=== PATIENT | female | born 1950 | race Caucasian/White ===

== ENCOUNTER 2017-12-09 08:45 | Emergency (ER) | payer OTHER ==
[~2017-12-09] VITALS: Ht 165.1 cm; Wt 90.7 kg
[2017-12-09 10:11] LABS: Basophils # (auto) 0 uL; Eosinophils # (auto) 0.1 uL; Monocytes # (auto) 0.7 uL; Nucleated Red Blood Cells % 0.4 %
[2017-12-09 10:13] LABS: Alanine Aminotransferase 79 U/L (13-56); Albumin 3.9 g/dL (3.4-5.0); Alkaline Phosphatase 59 U/L (45-117); Anion Gap 9 (5-15); Aspartate Aminotransferase 50 U/L (15-37); Basophils % (auto) 0.8 % (0.0-2.0); Bilirubin, Total 0.5 mg/dL (0.2-1.0); Blood Urea Nitrogen 23 mg/dL (7-18); Calcium 8.5 mg/dL (8.5-10.1); Carbon Dioxide 23 mmol/L (21-32); Chloride 108 mmol/L (98-107); GFR African American 74 mL/min; GFR Non-African American 61 mL/min; Glucose 108 mg/dL (74-106); Hematocrit 54.6 % (36.0-46.0); Hemoglobin 18.4 g/dL (12.2-16.2); Lymphocytes % (auto) 16.5 % (10.0-50.0); Mean Corpuscular Hemoglobin 31.8 pg (28.0-32.0); Mean Corpuscular Hgb Conc. 33.7 g/dL (32.0-36.0); Mean Corpuscular Volume 94.5 fL (80.0-100.0); Monocytes % (auto) 12.6 % (0.0-12.0); Neutrophils % (auto) 68.1 % (37.0-80.0); Platelet Count (auto) 224 10^3/uL (140-450); Potassium 3.4 mmol/L (3.5-5.1); Red Blood Cells 5.78 10^6/uL (4.0-5.20); Red Cell Distribution Width 13.5 % (11.8-14.3); Sodium 140 mmol/L (136-145); Total Protein 7.8 g/dL (6.4-8.2); White Blood Cell 5.8 10^3/uL (4.4-10.8)
[2017-12-09 16:00] VITALS: BP 121/94
== END 2017-12-09 16:15 | disposition home or self-care (01) ==
LOC: ER 09:08
DX: R53.1 Weakness (principal); Z88.8 Allergy status to other drugs, medicaments and biological substances; Z85.42 Personal history of malignant neoplasm of other parts of uterus; Z90.710 Acquired absence of both cervix and uterus; Z90.49 Acquired absence of other specified parts of digestive tract
CPT/HCPCS: 36415; 70450; 71046; 80053; 83690; 84484; 85025; 93005

== ENCOUNTER 2021-07-27 18:11 | Emergency (ER) | payer OTHER ==
[~2021-07-27] VITALS: Ht 167.6 cm; Wt 97.5 kg
[2021-07-27] MEDS ORDERED: amLODIPine BESYLATE 5 MG TAB ONE (18:39)
[2021-07-27] MEDS ORDERED: amLODIPine BESYLATE 5 MG TAB PO ONE (18:45)
[2021-07-27 22:23] VITALS: BP 163/76
== END 2021-07-27 22:50 | disposition home or self-care (01) ==
LOC: ER 18:13
DX: S61.210A Laceration without foreign body of right index finger without damage to nail, initial encounter (principal); I10 Essential (primary) hypertension; Z90.710 Acquired absence of both cervix and uterus; W22.8XXA Striking against or struck by other objects, initial encounter; Y93.89 Activity, other specified; Y92.090 Kitchen in other non-institutional residence as the place of occurrence of the external cause; Y99.8 Other external cause status
CPT/HCPCS: 12001

== ENCOUNTER 2024-05-19 06:49 | Inpatient (IN) | payer OTHER ==
[~2024-05-19] VITALS: Ht 167.6 cm; Wt 111.3 kg
--- NOTE | 2024-05-19 07:11 | ED.PDOC ---
Jacquie. trauma (HPI) HPI Comments 74 year old female presents to the ED with chief complaint of back pain s/p fall. Patient reports that she had accidentally tripped and fell backwards today, hitting her mid lower back against the toilet seat in her bathroom. Patient relays that since then, she has had a lot of pain to her back along with swelling and bruising to where she got hit by the toilet seat. Patient denies any LOC, head injury, neck injury, numbness, or weakness. Chief Complaint: Fall Injury Time Seen by MD: 07:09 Primary Care Provider: JAIMEE Reviewed notes: Nurses Notes, Medications, Allergies Allergies: Coded Allergies: Naproxen (Unverified Allergy, Unknown, 12/09/17) Information Source: Patient Mode of Arrival: Ambulatory Severity: Moderate Timing: Hours Duration: Since onset Prehospital treatment: None Location: Back Location of laceration: None Mechanism: Fall Past Medical History PAST MEDICAL HISTORY: Cancer, HTN Surgical History: Appendectomy, Hysterectomy, Tonsillectomy GEOSPATIAL ENGINEER History: Endometriosis Family History Family History: Reviewed,noncontributory to illness Social History Smoker: Non-Smoker Alcohol: Rarely Drugs: Denies Drug Use Lives In: Home Constitutional: denies: chills, diaphoresis, fatigue, fever, malaise, sweats, weakness, others EENTM: denies: blurred vision, double vision, ear bleeding, ear discharge, ear drainage, ear pain, ear ringing, eye pain, eye redness, hearing loss, mouth pain, mouth swelling, nasal discharge, nose bleeding, nose congestion, nose pain, photophobia, tearing, throat pain, throat swelling, voice changes, others Respiratory: denies: cough, hemoptysis, orthopnea, SOB at rest, shortness of breath, SOB with excertion, stridor, wheezing, others Cardiovascular: denies: chest pain, dizzy spells, diaphoresis, Dyspnea on exertion, edema, irregular heart beat, left arm pain, lightheadedness, palpitations, PND, syncope, others Gastrointestinal: denies: abdomen distended, abdominal pain, blood streaked bowels, constipated, diarrhea, dysphagia, difficulty swallowing, hematemesis, melena, nausea, poor appetite, poor fluid intake, rectal bleeding, rectal pain, vomiting, others Genitourinary: denies: abnormal vagina bleeding, burning, dyspareunia, dysuria, flank pain, frequency, hematuria, incontinence, pain, , vagina discharge, urgency, others Neurological: denies: dizziness, fainting, headache, left sided numbness, left sided weakness, numbness, paresthesia, pre-existing deficit, right sided n umbness, right sided weakness, seizure, speech problems, tingling, tremors, weakness, others Musculoskeletal: reports: back pain (Mid lower back); denies: gout, joint pain, joint swelling, muscle pain, muscle stiffness, neck pain, others Integumetry: reports: bruises (large hematoma to mid lower back); denies: change in color, change in hair/nails, dryness, laceration, lesions, lumps, rash, wounds, others Allergic/Immunocompromised: denies: Difficulty Healing, Frequent Infections, Hives, Itching, others Hematologic/Lymphatic: denies: anemia, blood clots, easy bleeding, easy bruising, swollen glands, others Endocrine: denies: excessive hunger, excessive sweating, excessive thirst, excessive urination, flushing, intolerance to cold, intolerance to heat, unexplained weight gain, unexplained weight loss, others Psychiatric: denies: anxiety, bipolar disorder, depression, hopeless, panic disorder, schizophrenia, sleepless, suicidal, others All Other Systems: Reviewed and Negative Physical Exam General Appearance: Moderate Distress, Obese HEENT: Normal ENT Inspection, PERRL/EOMI Neck: Full Range of Motion, Non-Tender, Normal, Normal Inspection Respiratory: Chest Non-Tender, Lungs Clear, No Accessory Muscle Use, No Respiratory Distress, Normal Breath Sounds Cardiovascular: No Edema, No JVD, No Murmur, No Gallop, Normal Peripheral Pu lses, Regular Rate/Rhythm Breast Exam: Deferred Gastrointestinal: No Organomegaly, Non Tender, No Pulsatile Mass, Normal Bowel Sounds, Soft Genitalia: Deferred Pelvic: Deferred Rectal: Deferred Extremities: No calf tenderness, Normal capillary refill, Normal inspection, Normal range of motion, Non-tender, No pedal edema Musculoskeletal : Location: Bilateral Extremity Location: Back, Other (Large almost involving the entire mid back with a large hematoma which is very painful very hard to touch) Apperance: Normal Neurologic: Alert, flat folder II-XII nml as Tested, No Motor Deficits, Normal Affect, Normal Mood, No Sensory Deficits Cerebellar Function: Normal Reflexes: NOT DONE Skin: Bruises, Dry, Normal Color, Warm Peripheral Pulses: 1+ carotid (R), 1+ carotid (L) Lymphatic: No Adenopathy Was a procedure done? Was a procedure done?: No Differential Diagnosis Multiple Trauma: Fractures, Spine Injury, Contusion, Hematoma Neck Injury: N/A X-Ray, Labs, Meds, VS Vital Signs Date Time Temp Pulse Resp B/P (MAP) Pulse Ox O2 Delivery O2 Flow Rate FiO2 05/19/24 10:03 73 20 95 Nasal Cannula* 2 28 05/19/24 10:00 73 19 94/58 (70) 99 05/19/24 09:30 76 19 98/65 (76) 95 05/19/24 09:15 98 19 77/56 (63) 91 05/19/24 09:00 98 19 84/58 (67) 91 05/19/24 08:54 82 17 83/58 05/19/24 08:29 123/73 05/19/24 08:24 81 19 123/73 05/19/24 08:00 81 19 123/73 (90) 93 05/19/24 07:30 98.3 92 20 191/116 (141) 93 98.3 05/19/24 07:29 186/102 05/19/24 06:55 97.8 101 16 226/127 (160) 98 Current Medications Medications (Trade) Dose Ordered Sig/Mari Route Start Time Stop Time Status Last Admin Clonidine HCl (Catapres Tablet) 0.2 mg ONCE ONCE PO 05/19/24 07:15 05/19/24 07:16 DC 05/19/24 07:29 Morphine Sulfate 3 mg ONCE ONCE IV 05/19/24 08:00 05/19/24 08:01 DC 05/19/24 08:24 Ondansetron HCl (Zofran) 4 mg ONCE ONCE IV 05/19/24 08:00 05/19/24 08:01 DC 05/19/24 08:23 Sodium Chloride 1,000 ml @ 1,000 mls/hr Q1H ONCE IV 05/19/24 09:00 05/19/24 10:10 DC 05/19/24 09:[address]: FINDINGS: Bones: No acute fracture or or subluxation. Disc spaces are maintained. Discogenic endplate changes are seen at several levels. Posterior facet arthropathy L3-S1 levels. Soft tissues: A large midline subcutaneous hematoma noted at the level of the spinous processes of L1 through L4 measuring 10 cm in craniocaudal, 12 cm in transverse and 7.5 cm in AP. IMPRESSION: 1. No acute osseous abnormality. 2. Large midline subcutaneous hematoma at the level of the spinous processes of L1 through L4. X-Ray, Labs, Meds, VS Comment 74 presented emergency department after a fall with a back injury in the large hematoma to was by 10 [address] of the back lumbar spine shows large hematoma but the spine besides some DJD does not show any injuries Patient in severe pain and we will need surgery to incised and drained hematoma Images Reviewed?: Images reviewed and evaluated by me Time of 1ST Reevaluation: 08:09 Reevaluation 1ST: Unchanged Patient Education/Counseling: Diagnosis, Treatment Family Education/Counseling: No Family Present Departure 1 Departure Time of Disposition: 10:35 Impression: Primary Impression: Fall at home Qualified Codes: W19.XXXA - Unspecified fall, initial encounter; Y92.009 - Unspecified place in unspecified non-institutional (private) residence as the place of occurrence of the external cause Additional Impressions: Subcutaneous hematoma Severe lumbar pain Disposition: 02 SHORT TERM HOSPITAL Condition: Fair Critical Care Note Critical Care Time?: No Stability Stability form required: Yes Heart Score Heart Score: Heart Score Response (Comments) Value History N/A 0 EKG N/A 0 Age >65 2 Risk Factors No known risk factors 0 Troponin N/A 0 Total 2 I personally scribed for ANAHY MORENO MD ([email or web address]) on 05/19/24 at 07:11. Electronically submitted by Heraclio Ribeiro ([email or web address]). I personally scribed for ANAHY MORENO MD ([email or web address]) on 05/19/24 at 08:16. Electronically submitted by Heraclio Ribeiro ([email or web address]). ANAHY MORENO MD May 19, 2024 07:11
[2024-05-19] MEDS: cloNIDine HCL 0.1 MG TAB PO ONE (07:29)
--- NOTE | 2024-05-19 08:13 | DVH ---
Procedure: CT LS SPINE WO CONTRAST 05/19/2024 07:31 AM Indication: Fall at home with large back hematoma Comparison Study: None. Technique: Axial images were obtained and reformatted in coronal and sagittal planes. All CT scans at this medical facility are performed using dose modulation techniques as appropriate t o a performed exam including the following: Automated exposure control was utilized; adjustment of th e MA and/or KV according to patient size; and use of iterative reconstruction technique. CT Dose: CTDI volume is 38.23 mGy. Dose-length product is 1108.31 mGy*cm FINDINGS: Bones: No acute fracture or or subluxation. Disc spaces are maintained. Discogenic endplate changes a re seen at several levels. Posterior facet arthropathy L3-S1 levels. Soft tissues: A large midline subcutaneous hematoma noted at the level of the spinous processes of L1 through L4 measuring 10 cm in craniocaudal, 12 cm in transverse and 7.5 cm in AP. IMPRESSION: 1. No acute osseous abnormality. 2. Large midline subcutaneous hematoma at the level of the spinous processes of L1 through L4.
[2024-05-19] MEDS: ONDANSETRON HCL 4 MG/2 ML VIAL IV ONE (08:23)
[2024-05-19] MEDS: MORPHINE SULFATE 4 MG/ML SYR/VIAL IV ONE (08:24)
[2024-05-19] MEDS: SODIUM CHLORIDE 0.9% 1,000 ML IV ONE ×2 (09:00→11:08)
[2024-05-19 10:03] VITALS: PULSE 73; RESP 20; O2SAT 95
[2024-05-19 11:20] LABS: Basophils # (auto) 0.1 10 ^3/uL (0-0.2); Basophils % (auto) 0.6 % (0.0-2.0); Eosinophils # (auto) 0 10 ^3/uL (0-0.8); Eosinophils % (auto) 0.3 % (0.0-7.0); Hematocrit 46.4 % (36.0-46.0); Hemoglobin 15.2 g/dL (12.2-16.2); Lymphocytes % (auto) 7.4 % (10.0-50.0); Mean Corpuscular Hemoglobin 32.2 pg (28.0-32.0); Mean Corpuscular Hgb Conc. 32.7 g/dL (32.0-36.0); Mean Corpuscular Volume 98.4 fL (80.0-100.0); Monocytes # (auto) 0.7 10 ^3/uL (0-1.3); Monocytes % (auto) 5.1 % (0.0-12.0); Neutrophils # (auto) 11.2 10 ^3/uL (1.6-8.6); Neutrophils % (auto) 86.6 % (37.0-80.0); Platelet Count (auto) 201 10^3/uL (140-450); Red Blood Cells 4.71 10^6/uL (4.0-5.20); Red Cell Distribution Width 13.6 % (11.8-14.3); White Blood Cell 12.9 10^3/uL (4.4-10.8)
[2024-05-19 11:34] LABS: Chloride 109 mmol/L (98-107); Potassium 4.8 mmol/L (3.5-5.1); Sodium 143 mmol/L (136-145)
[2024-05-19 11:35] LABS: Anion Gap 7 (5-15); Calcium 9.5 mg/dL (8.7-10.4); Carbon Dioxide 27 mmol/L (20-31)
[2024-05-19 11:40] LABS: BUN/Creatinine Ratio 17.1 (10.0-20.0); Blood Urea Nitrogen 14 mg/dL (9-23); Glucose 144 mg/dL (74-106); Lipase 43 U/L (12-53)
[2024-05-19 11:41] LABS: Magnesium 2.1 mg/dL (1.6-2.6)
[2024-05-19 12:30] LABS: Urine Bacteria MANY /hpf (None Seen); Urine Blood Negative /uL (Negative); Urine Clarity Turbid (Clear); Urine Color Yellow (Yellow); Urine Mucus FEW (None Seen); Urine Protein, UAD TRACE (Negative); Urine Specific Gravity 1.022 (1.001-1.035); Urine Urobilinogen Normal (Negative); Urine WBC 29 /hpf (0 - 5); Urine pH 5.5 (5.0-9.0)
[2024-05-19] MEDS ORDERED: TEMAZEPAM 15 MG CAP PO PRN (16:45)
[2024-05-19] MEDS ORDERED: NITROGLYCERIN 0.4 MG SL TAB SL PRN (16:45)
[2024-05-19] MEDS ORDERED: ACETAMINOPHEN 325 MG TAB PO PRN (16:45)
[2024-05-19] MEDS ORDERED: HYDROcodone-ACET 5/325MG TAB PO PRN (16:45)
[2024-05-19] MEDS ORDERED: MORPHINE SULFATE INJ 2 MG/ml SYRG IV PRN (16:45)
--- NOTE | 2024-05-19 16:47 | DVHHP2 ---
History of Present Illness Reason for Visit: Back pain status post fall History of Present Illness 74-year-old female with a known history of hypertension who initially presented to hospital with a mechanical fall this morning. Patient has stated that she was in the bathroom after taking shower she slipped onto the floor hitting his back to the toilet seat. In the ER patient underwent CT lumbar spine which shows evidence of subcutaneous hematoma at the level of L1 through L4, 10 cm in craniocaudal, 7.5 cm transverse. Patient complains of back pain but denies any radiation of pain to the legs. Patient will be needing admission for possible surgical intervention for evacuation of hematoma as the chances of lumbar radiculopathy. We will consult spine surgery. Cardiovascular: HTN Past Surgical History: Appendectomy, Cholecystectomy, Hysterectomy, Tonsillectomy Family History: None Smoke: No ALCOHOL: none Drugs: None Review of Systems Review of Systems Twelve review of system are negative besides mentioned above. 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 Labs/Xrays Labs Test 05/19/24 12:12 05/19/24 11:06 Range/Units Urine Color Yellow Yellow Urine Clarity Turbid H Clear Urine pH 5.5 5.0-9.0 Urine Specific [place] 1.022 1.001-1.035 Urine Protein Trace H Negative Urine Ketones Negative Negative Urine Blood Negative Negative /uL Urine Nitrite 2+ H Negative Urine Bilirubin Negative Negative Urine Urobilinogen Normal Negative mg/dL Urine Leukocyte Esterase 1+ Negative /uL Urine RBC 1 0 - 4 /hpf Urine WBC 29 0 - 5 /hpf Urine Squamous Epithelial Cells Few <5 /hpf Urine Bacteria Many H None Seen /hpf Urine Mucus Few None Seen Urine Glucose Normal Normal mg/dL White Blood Count 12.9 H 4.4-10.8 10^3/uL Red Blood Count 4.71 4.0-5.20 10^6/uL Hemoglobin 15.2 12.2-16.2 g/dL Hematocrit 46.4 H 36.0-46.0 % Mean Corpuscular Volume 98.4 80.0-100.0 fL Mean Corpuscular Hemoglobin 32.2 H 28.0-32.0 pg Mean Corpuscular Hemoglobin Concent 32.7 32.0-36.0 g/dL Red Cell Distribution Width 13.6 11.8-14.3 % Platelet Count 201 140-450 10^3/uL Mean Platelet Volume 8.9 6.9-10.8 fL Neutrophils (%) (Auto) 86.6 H 37.0-80.0 % Lymphocytes (%) (Auto) 7.4 L 10.0-50.0 % Monocytes (%) (Auto) 5.1 0.0-12.0 % Eosinophils (%) (Auto) 0.3 0.0-7.0 % Basophils (%) (Auto) 0.6 0.0-2.0 % Neutrophils # (Auto) 11.2 H 1.6-8.6 10 ^3/uL Lymphocytes # (Auto) 1.0 0.4-5.4 10 ^3/uL Monocytes # (Auto) 0.7 0-1.3 10 ^3/uL Eosinophils # (Auto) 0 0-0.8 10 ^3/uL Basophils # (Auto) 0.1 0-0.2 10 ^3/uL Nucleated Red Blood Cells 0.0 % Sodium Level 143 136-145 mmol/L Potassium Level 4.8 3.5-5.1 mmol/L Chloride Level 109 H 98-107 mmol/L Carbon Dioxide Level 27 20-31 mmol/L Anion Gap 7 5-15 Blood Urea Nitrogen 14 9-23 mg/dL Creatinine 0.82 0.550-1.02 mg/dL Glomerular Filtration Rate Calc 75 >90 mL/min BUN/Creatinine Ratio 17.1 10.0-20.0 Serum Glucose 144 H 74-106 mg/dL Calcium Level 9.5 8.7-10.4 mg/dL Magnesium Level 2.1 1.6-2.6 mg/dL Lipase 43 12-53 U/L Assessment/Plan Assessment/Plan 74-year-old female with a known history of hypertension who initially presented to the hospital with a mechanical fall found to have 1. Acute lumbar pain without any evidence of lumbar radiculopathy 2. Subcutaneous hematoma at L1 through L4 status post mechanical fall 3. Hypertension 4. Morbid obesity class two -pain meds as needed, -spine surgery consultation -physical therapy evaluation and treatment Plan discussed with: Patient My Orders Orders - FEDERICO PERDOMO MD Procedure Category Date Status Time Admit ADMIT 05/19/24 Transmitted 16:39 Code Status CODE 05/19/24 Transmitted 16:39 2 Gm Sodium Diet DIET 05/19/24 Transmitted Dinner Hydrocodone-Acet PHA 05/19/24 Transmitted 5/325mg Tab ([place] 16:45 Temazepam (Restoril) PHA 05/19/24 Transmitted 16:45 Ondansetron Hcl PHA 05/19/24 Transmitted (Zofran) 16:45 Fall Risk Precautions [place] 05/19/[address] 16:39 Complete Blood Count LAB 05/20/24 Verified 04:00 Comprehensive LAB 05/20/24 Verified Metabolic Panel 04:00 Pt Request For Service PT 05/19/24 Logged 16:39 Condition: Fair [place] 05/19/24 In Process 16:39 Acetaminophen Tablet PHA 05/19/24 Transmitted (Tylenol Tablet) 16:45 Morphine Sulfate PHA 05/19/24 Transmitted Injection 16:45 Nitroglycerin PHA 05/19/24 Transmitted Sublingual (Ntrostat 16:45 Morphine Sulfate PHA 05/19/24 Transmitted Injection 16:45 Stat Ekg For Chest [place] 05/19/24 In Process Pain 16:39 Notify Md Of Changes [facility] 05/19/24 In Process From Base 16:39 Observation Assistant For [facility] 05/19/24 In Process 24 Hours 16:39 Emergency Dysrhythmia [place] 05/19/24 In Process Protocol 16:39 Rhythm Strips Once [place] 05/19/24 In Process Every Shift 16:39 Oxygen By Nasal RT 05/19/24 Transmitted Cannula 16:39 Consultdr. Gonsalez CONS 05/19/24 Transmitted [place](Spine) 16:39 Problem List: (1) Severe lumbar pain (2) Fall at home (3) Subcutaneous hematoma Date of Service: May 19, 2024 Billing Provider: FEDERICO PERDOMO MD Common Visit Codes: NOT BILLABLE FEDERICO PERDOMO MD May 19, 2024 16:47
[2024-05-19] MEDS: ONDANSETRON HCL 4 MG/2 ML VIAL IV PRN (16:52)
[2024-05-19] MEDS: MORPHINE SULFATE INJ 2 MG/ml SYRG IV PRN (16:52)
[2024-05-19 19:52] VITALS: BP 117/64; PULSE 74; RESP 18; TEMP 98.4; O2SAT 99
[2024-05-19 20:00] VITALS: PULSE 74; RESP 18; O2SAT 99
[2024-05-19 21:00] VITALS: BP 117/64; PULSE 74; RESP 18; TEMP 98.4; O2SAT 99
[2024-05-20] VITALS (8 sets, daily range): BP systolic 91–141; BP diastolic 45–77; PULSE 67–94; RESP 16–92; TEMP 97.7–99; O2SAT 91–98
[2024-05-20] MEDS ORDERED: MELO15TA29 PO (03:57)
[2024-05-20 07:26] LABS: Basophils # (auto) 0.1 10 ^3/uL (0-0.2); Basophils % (auto) 0.9 % (0.0-2.0); Eosinophils # (auto) 0.2 10 ^3/uL (0-0.8); Eosinophils % (auto) 2.9 % (0.0-7.0); Hematocrit 41.2 % (36.0-46.0); Hemoglobin 13.6 g/dL (12.2-16.2); Lymphocytes # (auto) 1.4 10 ^3/uL (0.4-5.4); Mean Corpuscular Hemoglobin 32.6 pg (28.0-32.0); Monocytes # (auto) 0.8 10 ^3/uL (0-1.3); Monocytes % (auto) 11.3 % (0.0-12.0); Neutrophils # (auto) 4.6 10 ^3/uL (1.6-8.6); Neutrophils % (auto) 64.9 % (37.0-80.0); Platelet Count (auto) 181 10^3/uL (140-450); Red Blood Cells 4.16 10^6/uL (4.0-5.20); Red Cell Distribution Width 13.5 % (11.8-14.3); White Blood Cell 7.1 10^3/uL (4.4-10.8)
[2024-05-20 07:41] LABS: Alanine Aminotransferase 79 U/L (7-40); Albumin 3.8 g/dL (3.2-4.8); Alkaline Phosphatase 55 U/L (46-116); Anion Gap 5 (5-15); Aspartate Aminotransferase 50 U/L (13-40); BUN/Creatinine Ratio 18.4 (10.0-20.0); Bilirubin, Total 0.8 mg/dL (0.2-1.0); Blood Urea Nitrogen 16 mg/dL (9-23); Calcium 9.3 mg/dL (8.7-10.4); Carbon Dioxide 30 mmol/L (20-31); Chloride 109 mmol/L (98-107); Glucose 116 mg/dL (74-106); Potassium 4.3 mmol/L (3.5-5.1); Sodium 144 mmol/L (136-145); Total Protein 6.1 g/dL (5.7-8.2)
--- NOTE | 2024-05-20 15:47 | DVHPN2 ---
Subjective Overnight events noted. 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 Medications Current Medications Medications Dose Ordered Sig/Mari Route Start Time Stop Time Status Last Admin Dose Admin Acetaminophen/ Hydrocodone Bitart 1 tab Q4HP PRN PO 05/19/24 16:45 Temazepam 15 mg QHSP PRN PO 05/19/24 16:45 Ondansetron HCl 4 mg Q4HP PRN IV 05/19/24 16:45 05/19/24 16:52 4 MG Acetaminophen 650 mg Q6HP PRN PO 05/19/24 16:45 Morphine Sulfate 2 mg Q4HPRN PRN IV 05/19/24 16:45 05/20/24 13:43 2 MG Nitroglycerin 0.4 mg Q5MINP PRN SL 05/19/24 16:45 Morphine Sulfate 2 mg Q30M PRN IV 05/19/24 16:45 Laboratory Results Laboratory Tests 05/20/24 06:22 Chemistry Test 05/20/24 06:22 Albumin 3.8 g/dL (3.2-4.8) Calcium Level 9.3 mg/dL (8.7-10.4) Total Protein 6.1 g/dL (5.7-8.2) LFT Test 05/20/24 06:22 Alanine Aminotransferase (ALT) 79 U/L (7-40) H Alkaline Phosphatase 55 U/L (46-116) Aspartate Amino Transferase (AST) 50 U/L (13-40) H Total Bilirubin 0.8 mg/dL (0.2-1.0) Urinalysis Test 05/19/24 12:12 Urine Color Yellow (Yellow) Urine Clarity Turbid (Clear) H Urine pH 5.5 (5.0-9.0) Urine Specific [place] 1.022 (1.001-1.035) Urine Protein Trace (Negative) H Urine Ketones Negative (Negative) Urine Blood Negative /uL (Negative) Urine Nitrite 2+ (Negative) H Urine Bilirubin Negative (Negative) Urine Urobilinogen Normal mg/dL (Negative) Urine Leukocyte Esterase 1+ /uL (Negative) Urine RBC 1 /hpf (0 - 4) Urine WBC 29 /hpf (0 - 5) Urine Squamous Epithelial Cells Few /hpf (<5) Urine Bacteria Many /hpf (None Seen) H Urine Mucus Few (None Seen) Urine Glucose Normal mg/dL (Normal) Assessment/Plan Assessment/Plan 74-year-old female with a known history of hypertension who initially presented to the hospital with a mechanical fall found to have 1. Acute lumbar pain without any evidence of lumbar radiculopathy 2. Subcutaneous hematoma at L1 through L4 status post mechanical fall 3. Hypertension 4. Morbid obesity class II -pain meds as needed, -spine surgery consultation -physical therapy evaluation and treatment -discharge plan. Plan discussed with: Patient My Orders Orders - FEDERICO PERDOMO MD Procedure Category Date Status Time Admit ADMIT 05/19/24 Transmitted 16:39 Code Status CODE 05/19/24 Transmitted 16:39 2 Gm Sodium Diet DIET 05/19/24 Transmitted Dinner Hydrocodone-Acet PHA 05/19/24 In Process 5/325mg Tab ([place] 16:45 Temazepam (Restoril) PHA 05/19/24 In Process 16:45 Ondansetron Hcl PHA 05/19/24 In Process (Zofran) 16:45 Fall Risk Precautions [place] 05/19/[address] 16:39 Pt Request For Service PT 05/19/24 Logged 16:39 Condition: Fair [place] 05/19/24 In Process 16:39 Acetaminophen Tablet PHA 05/19/24 In Process (Tylenol Tablet) 16:45 Morphine Sulfate PHA 05/19/24 In Process Injection 16:45 Nitroglycerin PHA 05/19/24 In Process Sublingual (Ntrostat 16:45 Morphine Sulfate PHA 05/19/24 In Process Injection 16:45 Stat Ekg For Chest [place] 05/19/24 In Process Pain 16:39 Notify Of Changes [facility] 05/19/24 In Process From Base 16:39 Gimp Tacker For [facility] 05/19/24 In Process 24 Hours 16:39 Emergency Dysrhythmia [facility] 05/19/24 In Process Protocol 16:39 Rhythm Strips Once [facility] 05/19/24 In Process Every Shift 16:39 Oxygen By Nasal RT 05/19/24 Transmitted Cann[place] 16:39 ConsultdrJocelyne Gonsalez CONS 05/19/24 Transmitted [place](Spine) 16:39 Communication Order ORDERS 05/19/24 Transmitted 16:47 Date of Service: May 20, 2024 Billing Provider: FEDERICO PERDOMO MD Common Visit Codes: NOT BILLABLE FEDERICO PERDOMO MD May 20, 2024 15:47
[2024-05-21] VITALS (7 sets, daily range): BP systolic 115–135; BP diastolic 58–82; PULSE 63–85; RESP 16–20; TEMP 97.5–98.3; O2SAT 92–98
--- NOTE | 2024-05-21 15:39 | DVHPN2 ---
Subjective Overnight events noted. 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 Medications Current Medications Medications Dose Ordered Sig/Mari Route Start Time Stop Time Status Last Admin Dose Admin Acetaminophen/ Hydrocodone Bitart 1 tab Q4HP PRN PO 05/19/24 16:45 Temazepam 15 mg QHSP PRN PO 05/19/24 16:45 Ondansetron HCl 4 mg Q4HP PRN IV 05/19/24 16:45 05/19/24 16:52 4 MG Acetaminophen 650 mg Q6HP PRN PO 05/19/24 16:45 Morphine Sulfate 2 mg Q4HPRN PRN IV 05/19/24 16:45 05/21/24 14:22 2 MG Nitroglycerin 0.4 mg Q5MINP PRN SL 05/19/24 16:45 Morphine Sulfate 2 mg Q30M PRN IV 05/19/24 16:45 Laboratory Results Laboratory Tests 05/20/24 06:22 Urinalysis Test 05/19/24 12:12 Urine Color Yellow (Yellow) Urine Clarity Turbid (Clear) H Urine pH 5.5 (5.0-9.0) Urine Specific [place] 1.022 (1.001-1.035) Urine Protein Trace (Negative) H Urine Ketones Negative (Negative) Urine Blood Negative /uL (Negative) Urine Nitrite 2+ (Negative) H Urine Bilirubin Negative (Negative) Urine Urobilinogen Normal mg/dL (Negative) Urine Leukocyte Esterase 1+ /uL (Negative) Urine RBC 1 /hpf (0 - 4) Urine WBC 29 /hpf (0 - 5) Urine Squamous Epithelial Cells Few /hpf (<5) Urine Bacteria Many /hpf (None Seen) H Urine Mucus Few (None Seen) Urine Glucose Normal mg/dL (Normal) Assessment/Plan Assessment/Plan 74-year-old female with a known history of hypertension who initially presented to the hospital with a mechanical fall found to have 1. Acute lumbar pain without any evidence of lumbar radiculopathy 2. Subcutaneous hematoma at L1 through L4 status post mechanical fall 3. Hypertension 4. Morbid obesity class II -pain meds as needed, -spine surgery consultation -physical therapy evaluation and treatment -discharge plan. Plan discussed with: Patient, Daughter My Orders Orders - FEDERICO PERDOMO MD Procedure Category Date Status Time L Hand 2v Xray XY 05/21/24 Logged 15:30 Date of Service: May 21, 2024 Billing Provider: FEDERICO PERDOMO MD Common Visit Codes: NOT BILLABLE FEDERICO PERDOMO MD May 21, 2024 15:39
--- NOTE | 2024-05-21 17:02 | DVH ---
EXAM: XY L HAND 2V XRAY CLINICAL HISTORY: R/O FRACTURE S/P FALL COMPARISON: None TECHNIQUE: XY L HAND 2V XRAY Findings/Impression: 2 views of the left hand. There is no evidence of an acute fracture, dislocation, blastic, or lytic lesions. No radiopaque foreign bodies. No superficial soft tissue abnormalities.
[2024-05-21] MEDS: ATENOLOL 25 MG TAB PO SCH (22:31)
[2024-05-22] VITALS (8 sets, daily range): BP systolic 113–150; BP diastolic 50–81; PULSE 63–76; RESP 12–20; TEMP 97.8–98.4; O2SAT 92–97
--- NOTE | 2024-05-22 16:29 | DVHDS2 ---
Discharge Summary Date of Admission May 19, 2024 at 16:39 Date of Discharge: May 22, 2024 Labs/Diagnostic Data: Laboratory Results Test 05/20/24 06:22 05/19/24 12:12 05/19/24 11:06 White Blood Count 7.1 10^3/uL (4.4-10.8) Red Blood Count 4.16 10^6/uL (4.0-5.20) Hemoglobin 13.6 g/dL (12.2-16.2) Hematocrit 41.2 % (36.0-46.0) Mean Corpuscular Volume 99.0 fL (80.0-100.0) Mean Corpuscular Hemoglobin 32.6 pg (28.0-32.0) Mean Corpuscular Hemoglobin Concent 33.0 g/dL (32.0-36.0) Red Cell Distribution Width 13.5 % (11.8-14.3) Platelet Count 181 10^3/uL (140-450) Mean Platelet Volume 9.2 fL (6.9-10.8) Neutrophils (%) (Auto) 64.9 % (37.0-80.0) Lymphocytes (%) (Auto) 20.0 % (10.0-50.0) Monocytes (%) (Auto) 11.3 % (0.0-12.0) Eosinophils (%) (Auto) 2.9 % (0.0-7.0) Basophils (%) (Auto) 0.9 % (0.0-2.0) Neutrophils # (Auto) 4.6 10 ^3/uL (1.6-8.6) Lymphocytes # (Auto) 1.4 10 ^3/uL (0.4-5.4) Monocytes # (Auto) 0.8 10 ^3/uL (0-1.3) Eosinophils # (Auto) 0.2 10 ^3/uL (0-0.8) Basophils # (Auto) 0.1 10 ^3/uL (0-0.2) Nucleated Red Blood Cells 0.0 % Sodium Level 144 mmol/L (136-145) Potassium Level 4.3 mmol/L (3.5-5.1) Chloride Level 109 mmol/L (98-107) Carbon Dioxide Level 30 mmol/L (20-31) Anion Gap 5 (5-15) Blood Urea Nitrogen 16 mg/dL (9-23) Creatinine 0.87 mg/dL (0.550-1.02) Glomerular Filtration Rate Calc 69 mL/min (>90) BUN/Creatinine Ratio 18.4 (10.0-20.0) Serum Glucose 116 mg/dL (74-106) Calcium Level 9.3 mg/dL (8.7-10.4) Total Bilirubin 0.8 mg/dL (0.2-1.0) Aspartate Amino Transferase (AST) 50 U/L (13-40) Alanine Aminotransferase (ALT) 79 U/L (7-40) Alkaline Phosphatase 55 U/L (46-116) Total Protein 6.1 g/dL (5.7-8.2) Albumin 3.8 g/dL (3.2-4.8) Urine Color Yellow (Yellow) Urine Clarity Turbid (Clear) Urine pH 5.5 (5.0-9.0) Urine Specific [place] 1.022 (1.001-1.035) Urine Protein Trace (Negative) Urine Ketones Negative (Negative) Urine Blood Negative /uL (Negative) Urine Nitrite 2+ (Negative) Urine Bilirubin Negative (Negative) Urine Urobilinogen Normal mg/dL (Negative) Urine Leukocyte Esterase 1+ /uL (Negative) Urine RBC 1 /hpf (0 - 4) Urine WBC 29 /hpf (0 - 5) Urine Squamous Epithelial Cells Few /hpf (<5) Urine Bacteria Many /hpf (None Seen) Urine Mucus Few (None Seen) Urine Glucose Normal mg/dL (Normal) Magnesium Level 2.1 mg/dL (1.6-2.6) Lipase 43 U/L (12-53) Other Laboratory Tests 05/20/24 06:22 Brief Hx & Hospital Course: 74-year-old female with a known history of hypertension who initially presented to the hospital with a mechanical fall found to have acute lumbar pain without any evidence of lumbar radiculopathy. Patient has a subcutaneous hematoma at L1 through L4 status post mechanical fall. Patient was admitted for pain management. Patient will be discharged once cleared by spine surgery. Patient currently understand verbalized understanding agreeable to plan. Condition at Discharge: Stable Final Diagnosis/Problems List 74-year-old female with a known history of hypertension who initially presented to the hospital with a mechanical fall found to have 1. Acute lumbar pain without any evidence of lumbar radiculopathy 2. Subcutaneous hematoma at L1 through L4 status post mechanical fall 3. Hypertension 4. Morbid obesity class II Discharge Disposition: Home with Health Services Discharge Instruct/Medications Diet: Cardiac 2g Na,low cholest Activity: See Comment Activity comment: No driving, no playing on heavy machinery, no signing legal documents while on narcotics Follow Up/Referral: Follow up with the PCP in 1-2 weeks Follow up with spine surgery in 1-2 weeks. Medications: Please return to ER if there is any concern Discharge Statement: "Patient was advised to return to the ER or call 911 if any headaches, dizziness, shortness of breath, chest pain, abdominal pain, bleeding, fevers, or worsening of medical condition. Patient was counseled about treatment plan, medications, possible side effects, patientverbalized understanding. All questions were answered to the best of my ability. This discharge took greater then 30 minutes in planning, reviewing documentation, counseling the patient, and discussing with other team members." ASSESSMENT ASSESSMENT Assessment 74-year-old female with a known history of hypertension who initially presented to the hospital with a mechanical fall found to have 1. Acute lumbar pain without any evidence of lumbar radiculopathy 2. Subcutaneous hematoma at L1 through L4 status post mechanical fall 3. Hypertension 4. Morbid obesity class II Date of Service: May 22, 2024 Billing Provider: FEDERICO PERDOMO MD Common Visit Codes: NOT BILLABLE FEDERICO PERDOMO MD May 22, 2024 16:29
[2024-05-23 01:00] VITALS: BP 110/62; PULSE 63; RESP 17; TEMP 98.3; O2SAT 96
[2024-05-23 05:00] VITALS: BP 102/67; PULSE 66; RESP 16; TEMP 98.5; O2SAT 96
[2024-05-23 08:10] VITALS: PULSE 58
[2024-05-23 09:00] VITALS: BP 135/67; PULSE 62; RESP 16; TEMP 97.8; O2SAT 98
[2024-05-23 13:00] VITALS: BP 104/73; PULSE 65; RESP 16; TEMP 98; O2SAT 97
--- NOTE | 2024-05-23 14:34 | DVHINCON2 ---
Consultation - Spinal Surgery Date Seen: May 23, 2024 Referring Physician Referring Physician Attending Doctor: Abhishek De Santiago MD Reason for Consultation low back pain S/P fall with ecchymosis History of Present Illness History of Present Illness History of Present Illness Reason for Visit: Back pain status post fall History of Present Illness 74-year-old female with a known history of hypertension who initially presented to hospital with a mechanical fall this morning. Patient has stated that she was in the bathroom after taking shower she slipped onto the floor hitting his back to the toilet seat. In the ER patient underwent CT lumbar spine which shows evidence of subcutaneous hematoma at the level of L1 through L4, 10 cm in craniocaudal, 7.5 cm transverse. Patient complains of back pain but denies any radiation of pain to the legs. Patient will be needing admission for possible surgical intervention for evacuation of hematoma as the chances of lumbar radiculopathy. We will consult spine surgery. Past Medical/Surgical History Past Medical/Surgical History Cardiovascular: HTN Past Surgical History: Appendectomy, Cholecystectomy, Hysterectomy, Tonsillectomy Family and Social History Family and Social History Family History: None Smoke: No ALCOHOL: none Drugs: None Allergies and medications Allergies: Coded Allergies: Naproxen (Unverified Allergy, Unknown, 12/09/17) Home Meds Reported Medications Meloxicam (Meloxicam) 15 Mg Tab, 1 TAB PO DAILY, #30 TAB 2 Refills 05/20/24 Review of systems Review of Systems: HEENT:Normal, CVS:Normal, RESPIRATORY:Normal, GI:Normal, :Normal, MSK:Normal, NEURO:Normal Examination Vital signs Imagining ORDERING PHYSICIAN: ANAHY MORENO MD PROCEDURE(s): LS2CT - LS SPINE WO CONTRAST REASON: Fall at home with large back hematoma ORDER NUMBER(s): [id number], ACCESSION NUMBER(s): [id number] Procedure: CT LS SPINE WO CONTRAST 05/19/2024 07:31 AM Indication: Fall at home with large back hematoma Comparison Study: None. Technique: Axial images were obtained and reformatted in coronal and sagittal planes. All CT scans at this medical facility are performed using dose modulation techniques as appropriate to a performed exam including the following: Automated exposure control was utilized; adjustment of the MA and/or KV according to patient size; and use of iterative reconstruction technique. CT Dose: CTDI volume is 38.23 mGy. Dose-length product is 1108.31 mGy*cm FINDINGS: Bones: No acute fracture or or subluxation. Disc spaces are maintained. Discogenic endplate changes are seen at several levels. Posterior facet arthropathy L3-S1 levels. Soft tissues: A large midline subcutaneous hematoma noted at the level of the spinous processes of L1 through L4 measuring 10 cm in craniocaudal, 12 cm in transverse and 7.5 cm in AP. IMPRESSION: 1. No acute osseous abnormality. 2. Large midline subcutaneous hematoma at the level of the spinous processes of L1 through L4. Vital Signs Date Time Temp Pulse Resp B/P (MAP) Pulse Ox O2 Delivery O2 Flow Rate FiO2 05/23/24 13:00 98.0 65 16 104/73 (83) 97 98.0 05/23/24 08:05 Room Air* 0 21 Laboratory Labs Test 05/20/24 06:22 05/19/24 12:12 05/19/24 11:06 Range/Units White Blood Count 7.1 # 4.4-10.8 10^3/uL Red Blood Count 4.16 4.0-5.20 10^6/uL Hemoglobin 13.6 12.2-16.2 g/dL Hematocrit 41.2 # 36.0-46.0 % Mean Corpuscular Volume 99.0 80.0-100.0 fL Mean Corpuscular Hemoglobin 32.6 H 28.0-32.0 pg Mean Corpuscular Hemoglobin Concent 33.0 32.0-36.0 g/dL Red Cell Distribution Width 13.5 11.8-14.3 % Platelet Count 181 140-450 10^3/uL Mean Platelet Volume 9.2 6.9-10.8 fL Neutrophils (%) (Auto) 64.9 37.0-80.0 % Lymphocytes (%) (Auto) 20.0 10.0-50.0 % Monocytes (%) (Auto) 11.3 0.0-12.0 % Eosinophils (%) (Auto) 2.9 0.0-7.0 % Basophils (%) (Auto) 0.9 0.0-2.0 % Neutrophils # (Auto) 4.6 1.6-8.6 10 ^3/uL Lymphocytes # (Auto) 1.4 0.4-5.4 10 ^3/uL Monocytes # (Auto) 0.8 0-1.3 10 ^3/uL Eosinophils # (Auto) 0.2 0-0.8 10 ^3/uL Basophils # (Auto) 0.1 0-0.2 10 ^3/uL Nucleated Red Blood Cells 0.0 % Sodium Level 144 136-145 mmol/L Potassium Level 4.3 3.5-5.1 mmol/L Chloride Level 109 H 98-107 mmol/L Carbon Dioxide Level 30 20-31 mmol/L Anion Gap 5 5-15 Blood Urea Nitrogen 16 9-23 mg/dL Creatinine 0.87 0.550-1.02 mg/dL Glomerular Filtration Rate Calc 69 >90 mL/min BUN/Creatinine Ratio 18.4 10.0-20.0 Serum Glucose 116 H 74-106 mg/dL Calcium Level 9.3 8.7-10.4 mg/dL Total Bilirubin 0.8 0.2-1.0 mg/dL Aspartate Amino Transferase (AST) 50 H 13-40 U/L Alanine Aminotransferase (ALT) 79 H 7-40 U/L Alkaline Phosphatase 55 46-116 U/L Total Protein 6.1 5.7-8.2 g/dL Albumin 3.8 3.2-4.8 g/dL Urine Color Yellow Yellow Urine Clarity Turbid H Clear Urine pH 5.5 5.0-9.0 Urine Specific [place] 1.022 1.001-1.035 Urine Protein Trace H Negative Urine Ketones Negative Negative Urine Blood Negative Negative /uL Urine Nitrite 2+ H Negative Urine Bilirubin Negative Negative Urine Urobilinogen Normal Negative mg/dL Urine Leukocyte Esterase 1+ Negative /uL Urine RBC 1 0 - 4 /hpf Urine WBC 29 0 - 5 /hpf Urine Squamous Epithelial Cells Few <5 /hpf Urine Bacteria Many H None Seen /hpf Urine Mucus Few None Seen Urine Glucose Normal Normal mg/dL Magnesium Level 2.1 1.6-2.6 mg/dL Lipase 43 12-53 U/L Examination: GENERAL:Normal, HEENT:Normal, NECK:Normal, LUNGS:Normal, CVS:Normal, ABDOMEN:Normal, MSK:Normal (eccymosis to low back and hip), SKIN:Normal, NEURO:Normal, :Normal Problem List/Assessment/Plan Problems: (1) Severe lumbar pain (2) Fall at home Assessment and Plan Patient sustained a fall at home resulting in No acute osseous abnormality per CT reading. Continue supportive care per admitting team's discretion Patient is cleared for discharge her no barriers from a spine surgery perspective Any further issues she can follow up with her primary care doctor Call with questions Osmin Jay [facility] nurse practitioner For Dr Leif Olson - for staff use only Patient was examined, chart reviewed, labs evaluated, and diagnostic studies and findings analyzed. Case was discussed with Dr. Wallace Olson who formulated the plan of care. This medical document was created using an electronic medical record system with [employer] dictation system. Although this document has been carefully reviewed, there might still be some phonetic and typographical errors. These areas are purely typographical due to imperfections of the software programs, and do not reflect any compromise in the patient's medical care. Plan discussed with Plan discussed with: Patient, Other (bedside RN) PHILL JAY NP May 23, 2024 14:34
[2024-05-23 16:30] VITALS: BP 122/65; PULSE 69; RESP 20; TEMP 98.6; O2SAT 95
[2024-05-23] MEDS ORDERED: PERCOT PO (16:45)
[2024-05-23] MEDS: OXYCODONE W/ ACETAMINOPHEN 5/325MG TABLET PO ONE (16:46)
== END 2024-05-23 17:45 | disposition home or self-care (01) | DRG 605 ==
LOC: ER 06:49 → TELE 16:39 → TELE-CENTR 19:08
PROVIDERS: ADMIT Internal Medicine; ATTEND Internal Medicine
DX: S30.0XXA Contusion of lower back and pelvis, initial encounter (principal); R65.10 Systemic inflammatory response syndrome (SIRS) of non-infectious origin without acute organ dysfunction; I10 Essential (primary) hypertension; E66.01 Morbid (severe) obesity due to excess calories; W01.0XXA Fall on same level from slipping, tripping and stumbling without subsequent striking against object, initial encounter; Z90.710 Acquired absence of both cervix and uterus; Z90.49 Acquired absence of other specified parts of digestive tract; Y93.89 Activity, other specified; Y92.098 Other place in other non-institutional residence as the place of occurrence of the external cause; Y99.8 Other external cause status; Z68.39 Body mass index [BMI] 39.0-39.9, adult
CPT/HCPCS: 36415; 72131; 73120; 80048; 80053; 81001; 83690; 83735; 85025; 96361; 96374; 96375; 96376; 97110; 97116; 97163; 97530; G0378; J2405